=== PATIENT | female | born 1940 | race Caucasian/White ===

== ENCOUNTER 2024-09-12 17:04 | Emergency (ER) | payer MEDICARE, SELFPAY ==
[2024-09-12 17:23] VITALS: BP 156/76; PULSE 62; RESP 18; TEMP 37.2; O2SAT 96
--- NOTE | 2024-09-12 17:27 | XR_ITS ---
Examination: CT brain head without contrast. 2-D sagittal coronal reconstructions Date and time of exam:September 12, 2024 1842 hrs. Indications: Altered mental status today CTDI: vol (mGy):45.3 DLP: (mGycm):962 Technique: Multiple CT axial sections of the brain have been obtained, 5 mm slice thickness. Contrast has not been administered. 2-D sagittal, coronal reconstructions have been obtained Low dose protocols were performed. One or more of the following dose reduction techniques were used; automated exposure control, adjustment of the mA and/or KV according to patient size, use of iterative reconstruction technique. Findings: No significant ventricular enlargement. Intra-axial or extra-axial hemorrhage density is not seen. No mass effect or midline shift Basal cisterns are not remarkable. Fourth ventricle is midline. Cranial vault intact. Impression: Negative for acute hemorrhage, mass effect or midline shift Advise clinical correlation and follow-up accordingly
[2024-09-12 17:31] VITALS: PULSE 66; RESP 18; O2SAT 88; BMI 25.7
--- NOTE | 2024-09-12 17:31 | EKG_ITS ---
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1940 Requested By: Nehemias Rodas Order Number: [id number] Reading MD: Nehemias Rodas Measurements Intervals [place] Rate: 65 P: 76 WA: 172 QRS: -45 QRSD: 110 T: 93 QT: 401 QTc: 418 Interpretive Statements SINUS RHYTHM MARKED LEFT AXIS DEVIATION [QRS AXIS < -30] MODERATE VOLTAGE CRITERIA FOR LVH, CONSIDER NORMAL VARIANT [MEETS CRITERIA IN ONE OF: R(aVL), S(V1), R(V5), R(V5/V6)+S(V1)] NONSPECIFIC T-WAVE ABNORMALITY Compared to ECG 05/28/2024 12:01:16 Left-axis deviation now present T-wave abnormality now present Incomplete right bundle-branch block no longer present Left anterior fascicular block no longer present ST (T wave) deviation no longer present Myocardial infarct finding no longer present /store/S0/[id number].pdf
--- NOTE | 2024-09-12 17:33 | XR_ITS ---
Examination: AP chest single view Technique: AP portable upright chest single view Exam date and time: September 12, 2024 1806 hrs. Indications: Altered mental status shortness of breath today Findings: No significant cardiac enlargement The lungs are clear Moderate osteopenia Impression: No pneumonia or pulmonary edema
--- NOTE | 2024-09-12 17:38 | EDNOTE_ITS ---
<Statement entered by Suzette Mahoney MD - 09/23/24 17:38> As co-signing physician, I was present and available for consult prn. I concur with the plan and care as documented by the midlevel provider. Altered Mental Status RME/HPI General Chief Complaint: Altered Mental Status Stated Complaint: AMS Time Seen by Provider: 09/12/24 17:12 Arrival date/time: 09/12/24 17:04 RME / HPI RME / HPI narrative: 83-year-old female patient with significant history of hypertension, dementia, was brought in by EMS for evaluation regarding more altered than usual. Onset of symptoms earlier today as more confused than usual, patient friend is concerned because patient was just recently finished antibiotic for UTI. On my initial evaluation patient is only alert and oriented to herself. Denies any complaints. Related Data Home Medications ?Medication ?Instructions ?Recorded ?Confirmed memantine 10 mg tablet 10 mg PO BID 03/03/19 12/04/20 atorvastatin 10 mg tablet 10 mg PO QDAY 12/04/20 12/04/20 metoprolol tartrate 50 mg tablet 50 mg PO QDAY 12/04/20 12/04/20 Allergies Allergy/AdvReac Type Severity Reaction Status Date / Time NKA* Allergy Uncoded 03/03/19 08:19 Review of Systems Review of Systems Narrative Review of Systems: Review of system reviewed and within normal limits except mentioned in HPI ED Exam Narrative Physical exam: VITAL SIGNS: Reviewed. GENERAL APPEARANCE: Alert and interactive, follows commands, no acute distress, HEAD AND FACE: Non-traumatic. ENT: PERRL, pink conjunctivitis, eyelid no trauma, Mucous membrane moist. NECK: Supple, nontender, no nuchal rigidity. CHEST: No tenderness, no crepitus, no paradoxical movement, no retractions. LUNGS: Clear, well ventilated, symmetric, no rales, no wheezing, no ronchi, no stridor, good breath sounds bilaterally. HEART: Regular rate, regular rhythm, no murmur, no gallops. ABDOMEN: Soft, positive bowel sounds, nondistended, no guarding, nontender, no rebound, no masses, RECTAL: Deferred. GENITAL: Deferred. NEUROLOGICAL: Gross motor function intact sensory function intact, Appropriate for age. MUSCULOSKELETAL: low back nontender, full range of motion. EXTREMITIES: Nontender, full range of motion. SKIN: Color pink, dry, no rash, no lacerations, no abrasions, no contusions. LYMPHATICS: Deferred. Course Quality Measures none Orders Category Date Time Status Equipment Worker STAT Care 09/12/24 17:31 Active Continuous Pulse Oximetry STAT Care 09/12/24 17:31 Completed EKG (ED ONLY) *Do not use* NOW Care 09/12/24 17:31 Completed In and Out Catheter X1 Care 09/12/24 18:16 Completed In and Out Catheter X1PRN Care 09/12/24 17:31 Completed Insert IV NOW Care 09/12/24 17:31 Active NPO STAT Care 09/12/24 17:31 Active Strict Intake and Output Routine Care 09/12/24 17:[address] head/brain wo con Stat Exams 09/12/24 17:27 Completed EKG (ED Only) Stat Exams 09/12/24 17:31 Draft XR chest 1V SEPSIS PROTOCOL Stat Exams 09/12/24 17:33 Completed B-Type Natriuretic Peptide Stat Lab 09/12/24 17:48 Completed Blood Culture (Lab) Stat Lab 09/12/24 17:49 Received CBC Stat Lab 09/12/24 17:48 Completed Comprehensive Metabolic Panel Stat Lab 09/12/24 17:48 Completed LDH (Lactate Dehydrogenase) Stat Lab 09/12/24 17:48 Completed Lactate (Lactic Acid) Stat Lab 09/12/24 17:48 Completed Lipase Stat Lab 09/12/24 17:48 Completed Magnesium Stat Lab 09/12/24 17:48 Completed Partial Thromboplastin Time Stat Lab 09/12/24 17:48 Completed Phosphorous Stat Lab 09/12/24 17:48 Completed Procalcitonin Stat Lab 09/12/24 17:48 Completed Prothrombin Time with INR Stat Lab 09/12/24 17:48 Completed Troponin I Stat Lab 09/12/24 17:48 Completed Urinalysis Stat Lab 09/12/24 18:29 Completed Urine Culture Stat Lab 09/12/24 18:29 Received Sodium Chloride 0.9% 1000 ml [Ns] 1,000 ml Med 09/12/24 17:34 Discontinued IV 999 mls/hr Oxygen Delivery NOW RT 09/12/24 17:31 Active Vital Signs Vital signs: Vital Signs Temperature 98.9 F 09/12/24 17:23 Pulse Rate 62 09/12/24 17:23 Respiratory Rate 18 09/12/24 17:23 Blood Pressure 156/76 H 09/12/24 17:23 Pulse Oximetry (%) 96 09/12/24 17:23 Oxygen Delivery Method Room Air 09/12/24 17:23 Altered Mental Status MDM Narrative MDM Narrative:: 83-year-old female patient with significant history of hypertension, dementia, was brought in by EMS for evaluation regarding more altered than usual. Onset of symptoms earlier today as more confused than usual, patient friend is concerned because patient was just recently finished antibiotic for UTI. On my initial evaluation patient is only alert and oriented to herself. Denies any complaints. Patient's workup today all came back normal except for slightly elevated creatinine 1.4 and slightly elevated BUN which could be secondary to dehydration. CT scan of the head also came back unremarkable. Patient CT scan of the head also came back normal urinalysis no UTI patient is more alert and verbal after the IV fluids was given. Patient data External records reviewed:: None Clinical information provided by:: patient and family Social determinants that could affect healthcare access:: none Patient has the following chronic illnesses:: Dementia, hyper tension How is presenting disease/condition affected by chronic disease/condition?: exacerbated by Evaluation data The following diagnostics were reviewed and interpreted by me:: lab results, radiology exam(s) and EKG tracing(s) Lab and/or radiology exams considered but not ordered:: None Interpretation Summary: CT scan of the head came back unremarkable rheumatoid workup all came back unremarkable except for creatinine 1.4 and BUN of 37. Urinalysis no UTI. EKG showed normal sinus rhythm, ventricular rate of 65 bpm, ST segment ovation depression noted. I personally reviewed and interpreted the x-ray of this patient. There is no acute abnormalities found, no infiltrates no pneumothorax no hemothorax normal chest x-ray. Review of other structures was without significant abnormal findings also. I additionally reviewed the radiologist report and agree with the interpretation. Medications / Prescriptions Medications or Prescriptions considered but not ordered:: None Medication administrations:: Medication Administration History Discontinued Medications Sodium Chloride (Ns) 1,000 mls @ 999 mls/hr IV .Q1H1M ONE Stop: 09/12/24 18:34 Last Infusion: 09/12/24 18:57 Dose: Infused Documented By: Admin: 09/12/24 17:53 Dose: 999 mls/hr Documented By: AA IV fluids for hydration Consultations Consultation(s) initiated? (list below): No Diagnosis Differential diagnosis altered mental status: altered mental status Most likely diagnosis given after review of the tests above:: Dehydration Admission Indicated Admission indicated?: not indicated Explain why admission is indicated or not indicated:: Stable Admission Request Was there a request for admission?: No Disposition Plan Disposition Plan: Discharge Discharge Attestation Discharge Attestation: The patient and all family members were given an opportunity to ask questions and understood the discharge instructions. Discharge instructions specifically effects, indications for sooner follow up or return to the emergency department, and the expected course of current diagnosis. Patient condition: Stable Discharge Plan Plan Patient Disposition: HOME (Self Care) Disposition Comment: stable Prescriptions/Referrals Prescriptions/Med Rec: No Action memantine 10 mg Tablet 10 mg PO BID atorvastatin 10 mg Tablet 10 mg PO QDAY metoprolol tartrate 50 mg Tablet 50 mg PO QDAY Referrals: No Primary/Family,Physician [Primary Care Provider] - In 1 week Problem List Clinical Impression: Acute dehydration Patient/Caregiver Discharge Instructions Discharge Activity: activity as tolerated Education Materials: ED Dehydration (Adult) Additional Instructions: Thank you for the opportunity for serving you today. You are stable for discharged . You are advised to: Follow-up with your PCP in 1 to 2 days Return to ED for worsening of symptoms Increase oral fluids Print Language: Turkmen Stand Alone Forms: Shannon Award Info., Patient Portal Info Letter LIDIA/ABBI Supervising Physician LIDIA/ABBI Supervising Physician: MD Maru
[2024-09-12 17:41] VITALS: PULSE 71
[2024-09-12 17:42] VITALS: TEMP 37.5
[2024-09-12] MEDS: SODIUM CHLORIDE 0.9% 1000 ML 1,000 ML 999 ML IV (17:53)
[2024-09-12 18:03] LABS: Lactate (Lactic Acid) 1.3 mMol/L (0.4-2.0)
[2024-09-12 18:06] LABS: Basophils % (Auto) 0 % (0-2.5); Eosinophils # (Auto) 0.1 Thou/mm3 (0.0-0.5); Eosinophils % (Auto) 1 % (0-10); Hemoglobin 11.8 g/dL (12.0-16.0); Immature Granulocytes % (Auto) 1 % (0-0); Immature Granulocytes Auto 0.06 Thou/mm3 (0.00-0.00); Lymphocytes # (Auto) 1.1 Thou/mm3 (1.0-4.8); Lymphocytes % (Auto) 15 % (10-50); Mean Corpuscular HGB Conc 33.7 g/dl (31.0-37.0); Mean Corpuscular Hemoglobin 30.6 pg (25.0-35.0); Mean Corpuscular Volume 91 fL (80-100); Monocytes % (Auto) 14 % (0-12); Neutrophils # (Auto) 4.8 Thou/mm3 (1.8-7.7); Neutrophils % (Auto) 69 % (37-80); Nucleated Red Blood Cell % 0 /100 WBC (0); Platelet Count 133 Thou/mm3 (140-440); RDW Standard Deviation 48.1 fL (36.4-46.3); Red Blood Count 3.86 Miln/mm3 (4.00-5.20)
[2024-09-12 18:31] LABS: B-Type Natriuretic Peptide 93 pg/mL (0-100)
[2024-09-12 18:41] LABS: Alanine Aminotransferase 13 U/L (10-49); Albumin/Globulin Ratio 1.7 (1.2-2.2); Alkaline Phosphatase 97 U/L (46-116); Anion Gap 6 (7-16); Aspartate Amino Transferase 24 U/L (0-34); BUN/Creatinine Ratio 26 Ratio (12-20); Bilirubin,Total 0.4 mg/dL (0.3-1.2); Blood Urea Nitrogen 37 mg/dL (9-23); Calcium 9.1 mg/dL (8.3-10.6); Calcium (Corrected) 9.1 mg/dL (8.5-10.1); Carbon Dioxide 29.2 mMol/L (20.0-31.0); Chloride 102 mMol/L (98-107); Creatinine (Component) 1.4 mg/dL (0.6-1.3); Globulin 2.4 gm/dL (2.3-3.5); Glucose 118 mg/dL (74-106); LDH (Lactate Dehydrogenase) 316 U/L (120-246); Lipase 52 U/L (12-53); Magnesium 2.3 mg/dL (1.6-2.6); Osmolality,Calculated 283 (275-295); Phosphorous 3.9 mg/dL (2.4-5.1); Potassium 4.7 mMol/L (3.4-5.1); Procalcitonin 0.07 ng/ml (0.0-0.49); Sodium 137 mMol/L (136-145); Total Protein 6.4 gm/dL (5.7-8.2); Troponin I < 0.020 ng/mL (0.0-0.045); eGFR 37 See Note
[2024-09-12 18:41] LABS: Collection Type, Urine Clean Catch; Squamous Epithelial Cell,Urine 0 /hpf (0-5)
[2024-09-12 18:42] LABS: Partial Thromboplastin Time 26.2 Seconds (22.0-36.0)
[2024-09-12 18:48] LABS: Bilirubin,Urine Negative (Negative); Blood,Urine Negative (Negative); Clarity,Urine Clear (Clear/Hazy); Color,Urine Lt-Yellow (Lt Yel-Yel); Glucose, Urine Negative (Negative); Ketones,Urine Negative (Negative); Leukocyte Esterase,Urine Negative (Negative); Nitrite,Urine Negative (Negative); PH,Urine 6.5 (5.0-7.0); Protein,Urine Negative (Neg - Trace); RBC,Urine < 1 /hpf (0-3); Specific Gravity,Urine 1.021 (1.001-1.035); Urobilinogen,Urine Negative mg/dL (0.0-1.0); WBC,Urine < 1 /hpf (0-5)
[2024-09-12 19:14] VITALS: BP 125/71; PULSE 71; RESP 19; TEMP 37.2; O2SAT 96
--- NOTE | 2024-09-12 19:43 | PRELIM_ITS ---
CT scan of the head without intravenous contrast (axial sections with sagittal and coronal reformats) September 12, 2024 1842 hours Clinical history: AMS Comparison: No prior study is available for vi cruz. Findings:There is no evidence of intracranial hemorrhage, mass effect or midline shift. There are periventricular white matter hypodensities, compatible with chronic small vessel ischemia. 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 The CSF spaces are prominent consistent with volume loss. The calvarium is unremarkable. The mastoid air cells and the visualized paranasal sinuses are clear. Mild left parietal scalp swelling is seen.Impression:No evidence of intracranial hemorrhage, mass ef fect or midline shift.Chronic small vessel ischemia and volume loss.Mild left parietal scalp swelling . Report Electronically Signed By: Whitney Durbin 09/12/2024 7:42:05 PM [EST]
[2024-09-12 21:00] VITALS: BP 155/68; PULSE 72; RESP 18; TEMP 37; O2SAT 96
== END 2024-09-12 21:58 | disposition home or self-care (01) ==
PROVIDERS: Nurse Practitioner Family; Emergency Provider Emergency Medicine
DX: E86.0 Dehydration (principal); R41.82 Altered mental status, unspecified; R06.02 Shortness of breath; I10 Essential (primary) hypertension
CPT/HCPCS: 51701; 36415; 70450; 71045; 80053; 81001; 83605; 83615; 83690; 83735; 83880; 84100; 84145; 84484; 85025; 85610; 85730; 87040; 87086; 93005; 96360; 99284; J7030